=== PATIENT | female | born 1995 | race Caucasian/White ===

== ENCOUNTER 2016-06-20 21:57 | Emergency (ER) | payer SELFPAY ==
[~2016-06-20] VITALS: Ht 165.1 cm; Wt 73.1 kg
[~2016-06-20 21:57] MED LIST: CELEXA 20MG20 MG/TAB PO; LEXAPRO20 MG PO; NORCO 325 MG-51 TAB PO; NUVARING VAG RING VG; PROAIR HFA0.09 MG/AC IH; PROVENTIL0.09 MG/A1 IH; ULTRAM 50MG TAB50 MG PO; XANAX 0.5MG0.5 MG PO; XANAX XR3 MG PO
[2016-06-20 21:59] VITALS: BP 128/78; TEMP 98.2
[2016-06-20 23:00] VITALS: PULSE 88
== END 2016-06-20 23:03 | disposition home or self-care (01) ==
LOC: COL.ER 21:57
DX: S20.211A Contusion of right front wall of thorax, initial encounter (principal); S40.011A Contusion of right shoulder, initial encounter; V13.4XXA Pedal cycle driver injured in collision with car, pick-up truck or van in traffic accident, initial encounter; Y93.55 Activity, bike riding; Y92.414 Local residential or business street as the place of occurrence of the external cause